=== PATIENT | male | born 1995 | race Caucasian/White ===

== ENCOUNTER 2020-03-21 01:15 | Emergency (ER) | payer OTHER ==
[~2020-03-21] VITALS: Ht 167.6 cm; Wt 83.9 kg
--- NOTE | 2020-03-21 01:15 | NUR ---
PT BIB [facility], PREBOOK. TAKEN TO CHAIR
[2020-03-21 01:19] VITALS: BP 115/65
--- NOTE | 2020-03-21 01:19 | NUR ---
Dr. Henriquez examining patient.
[2020-03-21] MEDS ORDERED: BACITRACIN OINT 500 UNITS/GM PKT TP ONE (01:25)
--- NOTE | 2020-03-21 01:30 | NUR ---
PLACED BACITRACIN ON PT'S RIGHT INDEX FINGER AND ALSO PLACED A BANDAGE ON PT'S WOUND, CHECKED PMSC'S BEFORE AND AFTER PLACMENT WITHOUT INCIDENT.
--- NOTE | 2020-03-21 01:32 | NUR ---
SEEN AND CLEARED BY MD GROVER. [employer] SIGNED BY OFFICER
[2020-03-21 01:33] VITALS: BP 115/65
--- NOTE | 2020-03-21 01:34 | NUR ---
Patient discharged with v/s stable. Written and verbal after care instructions given and explained. Patient verbalized understanding. Police with in custody. All questions addressed prior to discharge. Advised to follow up with PMD.
== END 2020-03-21 01:34 ==
LOC: MED 01:15
DX: S61.219A Laceration without foreign body of unspecified finger without damage to nail, initial encounter (principal); V89.2XXA Person injured in unspecified motor-vehicle accident, traffic, initial encounter; Y93.89 Activity, other specified; Y92.89 Other specified places as the place of occurrence of the external cause; Y99.8 Other external cause status
CPT/HCPCS: 99283